=== PATIENT | male | born 1980 | race Hispanic/Latino ===

== ENCOUNTER 2019-05-11 20:09 | Emergency (ER) | payer SELFPAY ==
[2019-05-11] MEDS ORDERED: GEODON IM ONE ×2 (20:44→20:47)
[2019-05-11 21:23] LABS: Basophils % (Auto) 0.7 % (0.0-1.8); Eosinophils % (Auto) 0.4 % (0.0-4.3); Hematocrit 36.9 % (35.5-45.6); Hemoglobin 12.6 gm/dl (11.8-15.2); Lymphocytes # (Auto) 2.5 K/mm3 (1.2-5.4); Lymphocytes % (Auto) 37.1 % (13.4-35.0); Mean Corpuscular HGB Conc 34 % (32-34); Mean Corpuscular Hemoglobin 34 pg (28-32); Mean Corpuscular Volume 100 fl (84-94); Monocytes # (Auto) 0.3 K/mm3 (0.0-0.8); Monocytes % (Auto) 4.4 % (0.0-7.3); Platelet Count 263 K/mm3 (140-440); Red Blood Count 3.69 M/mm3 (3.65-5.03); Red Cell Distribution Width 13.9 % (13.2-15.2)
[2019-05-11 21:43] LABS: BUN/Creatinine Ratio 10; Blood Urea Nitrogen 6 mg/dL (9-20); Hemolysis Index 8
--- NOTE | 2019-05-12 01:12 | Emergency Department Report ---
<KIMBERLY CASTILLO - Last Filed: 05/12/19 01:10> ED Psych HPI - General Chief Complaint: Altered Mental Status Stated Complaint: LEG WEAKNESS Time Seen by Provider: 05/11/19 20:48 Source: EMS Mode of arrival: Ambulatory - History of Present Illness Initial Comments: Patient is a 39-year-old male who is presenting with audiovisual hallucinations. Patient has been drinking however he does have a history of schizophrenia as very paranoid and scaly. Pointing to possible in the floor stating that "they gonna give me a doesn't really matter what you do they gonna get me!" Patient will not give any additional history at this time. - Related Data Home Medications Medication Instructions Recorded Confirmed Last Taken No Known Home Medications [No 05/12/19 05/12/19 Unknown Reported Home Medications] Allergies Allergy/AdvReac Type Severity Reaction Status Date / Time No Known Allergies Allergy Unverified 02/13/19 16:24 ED Review of Systems Comment: All other systems reviewed and negative ED Past Medical Hx - Past Medical History Previous Medical History?: Yes Hx Seizures: Yes - Surgical History Past Surgical History?: Yes Additional Surgical History: Left elbow - Social History Smoking Status: Current Every Day Smoker Substance Use Type: Alcohol - Medications Home Medications: Home Medications Medication Instructions Recorded Confirmed Last Taken Type No Known Home Medications [No 05/12/19 05/12/19 Unknown History Reported Home Medications] ED Physical Exam - General Limitations: Altered Mental Status General appearance: alert, anxious, in distress, other (aggitated) - Head Head exam: Present: atraumatic, normocephalic - Eye Eye exam: Present: normal appearance, PERRL, EOMI - ENT ENT exam: Present: mucous membranes moist - Neck Neck exam: Present: normal inspection - Respiratory Respiratory exam: Present: normal lung sounds bilaterally. Absent: respiratory distress, wheezes, rales - Cardiovascular Cardiovascular Exam: Present: regular rate, normal rhythm. Absent: systolic murmur, diastolic murmur, rubs, gallop - GI/Abdominal GI/Abdominal exam: Present: soft, normal bowel sounds. Absent: distended, tenderness, guarding, rebound - Rectal Rectal exam: Present: deferred - Extremities Exam Extremities exam: Present: normal inspection - Back Exam Back exam: Present: normal inspection - Neurological Exam Neurological exam: Present: alert, oriented X3 - Psychiatric Psychiatric exam: Present: agitated, anxious - Skin Skin exam: Present: warm, dry, intact, normal color. Absent: rash ED Medical Decision Making - Lab Data Result diagrams: 05/11/19 20:53 05/11/19 20:53 Lab Results 05/11/19 05/11/19 05/11/19 Range/Units 20:53 20:53 20:53 WBC 6.7 (4.5-11.0) K/mm3 RBC 3.69 (3.65-5.03) M/mm3 Hgb 12.6 (11.8-15.2) gm/dl Hct 36.9 (35.5-45.6) % MCV 100 H (84-94) fl MCH 34 H (28-32) pg MCHC 34 (32-34) % RDW 13.9 (13.2-15.2) % Plt Count 263 (140-440) K/mm3 Lymph % (Auto) 37.1 H (13.4-35.0) % Hughes % (Auto) 4.4 (0.0-7.3) % Eos % (Auto) 0.4 (0.0-4.3) % Baso % (Auto) 0.7 (0.0-1.8) % Lymph # 2.5 (1.2-5.4) K/mm3 Hughes # 0.3 (0.0-0.8) K/mm3 Eos # 0.0 (0.0-0.4) K/mm3 Baso # 0.0 (0.0-0.1) K/mm3 Seg Neutrophils % 57.4 (40.0-70.0) % Seg Neutrophils # 3.8 (1.8-7.7) K/mm3 Sodium 145 (137-145) mmol/L Potassium 3.8 (3.6-5.0) mmol/L Chloride 104.5 (98-107) mmol/L Carbon Dioxide 24 (22-30) mmol/L Anion Gap 20 mmol/L BUN 6 L (9-20) mg/dL Creatinine 0.6 L (0.8-1.5) mg/dL Estimated GFR > 60 ml/min BUN/Creatinine Ratio 10 % Glucose 94 (75-100) mg/dL Calcium 9.0 (8.4-10.2) mg/dL Salicylates < 0.3 L (2.8-20.0) mg/dL Acetaminophen (10.0-30.0) ug/mL Plasma/Serum Alcohol (0-0.07) % 05/11/19 05/11/19 Range/Units 20:53 20:53 WBC (4.5-11.0) K/mm3 RBC (3.65-5.03) M/mm3 Hgb (11.8-15.2) gm/dl Hct (35.5-45.6) % MCV (84-94) fl MCH (28-32) pg MCHC (32-34) % RDW (13.2-15.2) % Plt Count (140-440) K/mm3 Lymph % (Auto) (13.4-35.0) % Hughes % (Auto) (0.0-7.3) % Eos % (Auto) (0.0-4.3) % Baso % (Auto) (0.0-1.8) % Lymph # (1.2-5.4) K/mm3 Hughes # (0.0-0.8) K/mm3 Eos # (0.0-0.4) K/mm3 Baso # (0.0-0.1) K/mm3 Seg Neutrophils % (40.0-70.0) % Seg Neutrophils # (1.8-7.7) K/mm3 Sodium (137-145) mmol/L Potassium (3.6-5.0) mmol/L Chloride (98-107) mmol/L Carbon Dioxide (22-30) mmol/L Anion Gap mmol/L BUN (9-20) mg/dL Creatinine (0.8-1.5) mg/dL Estimated GFR ml/min BUN/Creatinine Ratio % Glucose (75-100) mg/dL Calcium (8.4-10.2) mg/dL Salicylates (2.8-20.0) mg/dL Acetaminophen < 5.0 L (10.0-30.0) ug/mL Plasma/Serum Alcohol 0.38 H (0-0.07) % ED Disposition Clinical Impression: Alcohol-induced psychosis Disposition: DC- TO HOME OR SELFCARE Condition: Stable Instructions: Abuse of Alcohol (ED) Additional Instructions: return if worse Referrals: RAMONA RIOJAS MD [Primary Care Provider[facility] <QUINTON FRANCISCO - Last Filed: 05/17/19 02:13> ED Review of Systems ROS: Stated complaint: LEG WEAKNESS Other details as noted in HPI Comment: All other systems reviewed and negative ED Course Vital Signs 05/11/19 05/12/19 05/12/19 21:18 02:21 08:14 Temperature 97.7 F 97.7 F 98.3 F Pulse Rate 82 60 45 L Respiratory 14 18 18 Rate Blood Pressure 119/82 123/84 123/60 [Left] O2 Sat by Pulse 95 99 100 Oximetry 05/12/19 05/12/19 05/13/19 14:11 19:30 01:54 Temperature 97.7 F 98.3 F 97.7 F Pulse Rate 52 L 60 51 L Respiratory 16 20 18 Rate Blood Pressure 153/75 152/81 128/73 [Left] O2 Sat by Pulse 98 99 96 Oximetry 05/13/19 05/13/19 05/13/19 10:15 15:19 19:16 Temperature 97.7 F 97.5 F L 98.4 F Pulse Rate 80 69 58 L Respiratory 18 18 18 Rate Blood Pressure 127/92 110/77 137/78 [Left] O2 Sat by Pulse 96 100 99 Oximetry 05/14/19 05/14/19 05/14/19 02:00 06:00 11:58 Temperature 98.5 F 98.8 F 98.0 F Pulse Rate 67 62 92 H Respiratory 18 20 16 Rate Blood Pressure 119/87 110/82 137/92 [Left] O2 Sat by Pulse 97 98 100 Oximetry ED Medical Decision Making - Lab Data Result diagrams: 05/11/19 20:53 05/11/19 20:53 - Medical Decision Making Patient seen by psychiatry and 1013 was rescinded Patient given outpatient services for follow-up Critical care attestation.: If time is entered above; I have spent that time in minutes in the direct care of this critically ill patient, excluding procedure time. ED Disposition Is pt being admited?: No Does the pt Need Aspirin: No Time of Disposition: 13:24
[2019-05-12 04:27] LABS: Bilirubin,Urine NEG (Negative); Blood,Urine NEG (Negative); Color,Urine Yellow (Yellow); Hyaline Casts,Urine 1 /LPF; Mucus,Urine FEW /HPF; Protein,Urine <15 mg/dL mg/dL (Negative); Urobilinogen,Urine < 2.0 mg/dL (<2.0); WBC,Urine < 1.0 /HPF (0.0-6.0)
[2019-05-12 04:35] LABS: Amphetamine Screen,Urine PRESUMPTIVE NEGATIVE; Benzodiazepines Screen,Urine PRESUMPTIVE NEGATIVE; Cocaine Screen,Urine PRESUMPTIVE NEGATIVE; Methadone Screen,Urine PRESUMPTIVE NEGATIVE; Opiate Screen,Urine PRESUMPTIVE NEGATIVE
[2019-05-12 04:57] LABS: Cannabinoid Screen,Urine PRESUMPTIVE POSITIVE
[2019-05-12] MEDS ORDERED: ATIVAN IV PRN ×2 (10:26)
[2019-05-12] MEDS ORDERED: ATIVAN PO PRN (10:26)
--- NOTE | 2019-05-12 10:32 | Consultation ---
History of Present Illness - Reason for Consult Consult date: 05/12/19 Reason for consult: Mental Health Evaluation Requesting physician: KIMBERLY CASTILLO - Chief Complaint Chief complaint: "I drink a lot" - History of Present Psychiatric Illness 39-year-old white male who presented to the ER for AH's. Today the patient was calm during the assessment. He stated that he has a "drinking problem." he stated that most if his issues stem from his "drinking problem." He stated that he had his fist drink at the age of 15 and haven't stopped since. He stated that he is willing to try rehab services when discharged. He stated that he "see things" when he drink. He denies having a mood/psychotic do when asked. He denies SI/HI's and VH's. He stated that he saw "something strange" last night, but denies seeing it now. He denies erratic sleep and a poor appetite. He acknowledged recreational drug use. Medications and Allergies Allergies Allergy/AdvReac Type Severity Reaction Status Date / Time No Known Allergies Allergy Unverified 02/13/19 16:24 Active Meds: Active Medications Lorazepam (Ativan) 2 mg PO Q1HR PRN PRN Reason: CIWA-Ar 8-15 Lorazepam (Ativan) 4 mg PO Q1HR PRN PRN Reason: CIWA-Ar 16-25 Lorazepam (Ativan) 2 mg IV Q1HR PRN PRN Reason: CIWA-Ar 8-15 Lorazepam (Ativan) 4 mg IV Q1HR PRN PRN Reason: CIWA-Ar 16-25 Past psychiatric history - Past Medical History Past Medical History: No medical history Past Surgical History: No surgical history - past Psychiatric treatment and history psychiatric treatment history: Hx of alcohol/substance abuse. Denies a fam psy hx. - Social History Social history: other (Homless) Mental Status Exam - Vital signs Last Vital Signs Temp 98.3 F 05/12/19 08:14 Pulse 45 L 05/12/19 08:14 Resp 18 05/12/19 08:14 BP 123/60 05/12/19 08:14 Pulse Ox 100 05/12/19 08:14 - Exam Narrative exam: MSE: Appearance: calm Behavior: regular eye contact Speech: regular rate and tone Mood: "okay" Affect: congruent to mood Thought Process: circumstantial Thought Content: denies SI/HI's and AVH's Motor Activity: mild to moderate tremores Cognition: A/O x3 Insight: variable Judgment: variable Results Result Diagrams: 05/11/19 20:53 05/11/19 20:53 Abnormal lab results 05/11/19 05/11/19 05/11/19 Range/Units 20:53 20:53 20:53 MCV 100 H (84-94) fl MCH 34 H (28-32) pg Lymph % (Auto) 37.1 H (13.4-35.0) % BUN 6 L (9-20) mg/dL Creatinine 0.6 L (0.8-1.5) mg/dL Salicylates < 0.3 L (2.8-20.0) mg/dL Acetaminophen (10.0-30.0) ug/mL Plasma/Serum Alcohol (0-0.07) % 05/11/19 05/11/19 Range/Units 20:53 20:53 MCV (84-94) fl MCH (28-32) pg Lymph % (Auto) (13.4-35.0) % BUN (9-20) mg/dL Creatinine (0.8-1.5) mg/dL Salicylates (2.8-20.0) mg/dL Acetaminophen < 5.0 L (10.0-30.0) ug/mL Plasma/Serum Alcohol 0.38 H (0-0.07) % All other labs normal. 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 Cannabis Use DO. Today the patient was panda during the assessment. Mild to moderate tremors (etoh). DDx: Substance Induced Psychosis Recommendation/Plan: Reevaluate the patient's 1013 in 24 hours. Continue CIWA. Dispo: If the patient's 1013 is rescinde in 24 hours, he will be given a referral to a local local rehab services in his area. Will staff with Dr Shantel Anderson.
[2019-05-12] MEDS: ATIVAN PO PRN ×2 (16:02→20:16)
[2019-05-12] MEDS ORDERED: ZOFRAN ODT PO ONE (18:53)
--- NOTE | 2019-05-13 13:49 | Progress Note ---
Subjective - Reason for Consult Consult date: 05/13/19 Reason for consult: Psychiatric Folloow-up Evaluation - Chief Complaint Chief complaint: "I feel better today" Patient is a 39-year-old white male who presented to the ER for auditory hallucinations. Today the patient is calm and cooperative during the assessment. He states that he has a "drinking problem." He continues to endorse intermittent auditory hallucinations related to excessive drinking. Patient states the auditory hallucinations are saying " hey Faby, hey Faby." He reports good sleep and appetite. Patient reports medication compliance. Partially effective. No side effects noted/reported. He denies SI/HI's, VH's and delusions. Mental Status Exam - Vital signs Last Vital Signs Temp 97.7 F 05/13/19 10:15 Pulse 80 05/13/19 10:15 Resp 18 05/13/19 10:15 BP 127/92 05/13/19 10:15 Pulse Ox 96 05/13/19 10:15 - Exam Narrative exam: Mental Status Exam: Appearance: calm Behavior: regular eye contact Speech: regular rate and tone Mood: " I feel better today" Affect: congruent to mood Thought Process: circumstantial Thought Content: denies SI/HI's, VH's, delusions; +AH's " hey Faby" Motor Activity: mild to moderate tremors Cognition: A/O x 3 Insight: variable Judgment: variable Assessment and Plan Impression: Alcohol Use DO. Cannabis Use DO. Today the patient is calm and cooperative during the assessment. Mild to moderate tremors (etoh) and AH's ( r/t to excessive drinking/intermittent). DDx: Substance Induced Psychosis Recommendation/Plan: 1. Reevaluate the patient's 1013 in 24 hours. Continue CIWA. 2. If patient continues to have auditory hallucinations psychiatry will start an anti-psychotic . Disposition: If the patient's 1013 is rescinded in 24 hours, he will be given a referral to a local local rehab services in his area. Will staff with Dr Shantel Anderson.
[2019-05-14 12:06] VITALS: BP 137/92
--- NOTE | 2019-05-14 12:32 | Progress Note ---
Subjective - Reason for Consult Consult date: 05/14/19 Reason for consult: Psychiatry Follow-up - Chief Complaint Chief complaint: "Juan" Patient is a 39-year-old white male who presented to the ER for auditory hallucinations. Today the patient was calm and cooperative during the assessment. He stated that he feel much better and deny AH's when asked. He stated he is willing to try rehab services when discharged. He denies SI/HI's and AVH's. 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 Cannabis Use DO. Today the patient was panda during the assessment. The patient's psychosis has resolved. DDx: Substance Induced Psychosis Recommendation/Plan: Rescind 1013. Discussed the importance to abstain from recreational drug use, he verbalized understanding. Case Mgmt informed, the patient may need assistance with placement. Dispo: The patient can follow up with [facility] for outpatient rehab services. Will staff with Dr Shantel Anderson.
== END 2019-05-14 13:52 | disposition home or self-care (01) ==
LOC: ED 20:09
DX: F10.159 Alcohol abuse with alcohol-induced psychotic disorder, unspecified (principal); F12.10 Cannabis abuse, uncomplicated; Y90.1 Blood alcohol level of 20-39 mg/100 ml
CPT/HCPCS: 36415; 80048; 80307; 81001; 85025; 96372; 96374; 99284; J2060; J3486; 80320; G0480; Q0162